=== PATIENT | female | born 1985 | race African-American/Black ===

== ENCOUNTER 2020-05-19 16:44 | Emergency (ER) | payer OTHER ==
[~2020-05-19] VITALS: Ht 154.9 cm; Wt 71.2 kg
[2020-05-19 17:00] VITALS: BP 138/92
--- NOTE | 2020-05-19 17:00 | NUR ---
ED Nurse Note: Pt walked into ED for pain L leg for 2 days, when she was bitten by spider. Spider bite has no drainage, pain 7/10. Slight swelling and redness at site. Pt is alert and orientedx4, ambulatory.
[2020-05-19] MEDS ORDERED: CEPHALEXIN500 MG ORAL (17:11)
[2020-05-19] MEDS ORDERED: IBUPROFEN600 M1 ORAL (17:11)
[2020-05-19] MEDS ORDERED: MUPIROCIN22 GM TOPIC (17:11)
--- NOTE | 2020-05-19 17:11 | Emergency Room Report ---
History of Present Illness General Chief Complaint: Skin Rash/Abscess Source: Patient Present Illness HPI 34-year-old female presents to the emergency department complaining of 9 out of 10 severity pain that is been progressive to the posterior left thigh x2 days. Patient reports she sustained insect bite 2 days ago and initially it was itchy with some mild swelling. Patient reports that after scratching she noticed it became more painful and tender to the touch. Patient reports some warmth. She denies fevers or chills. She also reports additional insect bite to the left collarbone area x1 day. Patient denies itching at this time. She reports she is up-to-date with tetanus vaccination. She denies significant past medical history. She denies or suspicion of . No other aggravating or relieving factors. Allergies: Coded Allergies: No Known Allergies (Unverified , 05/19/20) COVID-19 Screening Contact w/high risk pt: No Experienced COVID-19 symptoms?: No COVID-19 Testing performed OUTSIDE SALES MANAGER: No Patient History Past Medical History: see triage record Past Surgical History: none Pertinent Family History: none Now: No Reviewed Nursing Documentation: PMH: Agreed; PSxH: Agreed Nursing Documentation-PMH Past Medical History: No Stated History Review of Systems All Other Systems: negative except mentioned in HPI Physical Exam Vital Signs Date Time Temp Pulse Resp B/P (MAP) Pulse Ox O2 Delivery O2 Flow Rate FiO2 05/19/20 16:50 98.4 84 16 141/95 (110) 100 Room Air Sp02 EP Interpretation: reviewed, normal General Appearance: no apparent distress, alert, GCS 15, non-toxic Head: normocephalic, atraumatic Eyes: bilateral eye normal inspection, bilateral eye PERRL ENT: hearing grossly normal, normal voice Neck: full range of motion Respiratory: chest non-tender, lungs clear, normal breath sounds, no res piratory distress, no accessory muscle use, no wheezing, speaking full sentences Cardiovascular #1: regular rate, rhythm Musculoskeletal: normal range of motion, gait/station normal, non-tender Neurologic: alert, motor strength/tone normal, oriented x3, sensory intact, responsive, speech normal Psychiatric: judgement/insight normal Skin: no rash, other - insect bite of the left posterior thigh with secondary bacterial infection. No evidence to suggest abscess. No palpable fluctuance. Lymphatic: no adenopathy Medical Decision Making PA Attestation Dr. Ma Is my supervising Physician whom patient management has been discussed with. Diagnostic Impression: Primary Impression: Infected insect bite of lower extremity Qualified Codes: S80.862A - Insect bite (nonvenomous), left lower leg, initial encounter; L08.9 - Local infection of the skin and subcutaneous tissue, unspecified; W57.XXXA - Bitten or stung by nonvenomous insect and other nonvenomous arthropods, initial encounter ER Course 34-year-old female presents to the emergency department complaining of 9 out of 10 severity pain that is been progressive to the posterior left thigh x2 days. Patient reports she sustained insect bite 2 days ago and initially it was itchy with some mild swelling. Patient reports that after scratching she noticed it became more painful and tender to the touch. Patient reports some warmth. She denies fevers or chills. She also reports additional insect bite to the left collarbone area x1 day. Patient denies itching at this time. She reports she is up-to-date with tetanus vaccination. She denies significant past medical history. She denies or suspicion of . No other aggravating or relieving factors. Ddx considered but are not limited to cellulitis, scabies, insect bites, tic bites, spider bites, contact dermatitis, Drug reaction, allergic reaction, fungal infection, lice. Vital signs: are WNL, pt. is afebrile H&PE are most consistent with insect bite of the left posterior thigh with secondary bacterial infection. No evidence to suggest abscess. No palpable fluctuance. ORDERS: none required at this time, the diagnosis is clinical ED INTERVENTIONS: None required at this time. -I do not identify an emergent condition at this time. With current pre sentation, pt. is stable for close outpatient follow up and conservative treatment. D/w pt. to return promptly to ED with worsening or new symptoms.- Pt. verbalizes' understanding and agreement with proposed treatment plan. DISCHARGE: At this time pt. is stable for d/c to home. Will provide printed patient care instructions, and any necessary prescriptions. Care plan and follow up instructions have been discussed with the patient prior to discharge. Last Vital Signs Date Time Temp Pulse Resp B/P (MAP) Pulse Ox O2 Delivery O2 Flow Rate FiO2 05/19/20 16:50 98.4 84 16 141/95 (586) 100 Room Air Disposition: HOME, SELF-CARE Condition: Stable Referrals: [facility] [place] [facility] Patient Instructions: Insect Bite, [id number] Additional Instructions: Take medications as directed. Follow up with a Primary Care Provider in 3-5 days, even if your symptoms have resolved. --Please review list of primary care clinics, if you do not already have a primary care provider Return sooner to ED if new symptoms occur, or current symptoms become worse. - Please note that this Emergency Department Report was dictated using [employer] cutting operator technology software, occasionally this can lead to erroneous entry secondary to interpretation by the dictation equipment. Nannette Crenshaw May 19, 2020 17:11
--- NOTE | 2020-05-19 17:28 | NUR ---
ER DISCHARGE NOTE: Patient is cleared to be discharged per ERMD, pt is aox4, on room air, with stable vital signs. pt was given dc and prescription instructions, pt was able to verbalize understanding, pt id band removed. pt is able to ambulate with steady gait. pt took all belongings.
[2020-05-19 17:29] VITALS: BP 132/90
== END 2020-05-19 17:29 | disposition home or self-care (01) ==
LOC: EMR 17:13
DX: S80.862A Insect bite (nonvenomous), left lower leg, initial encounter (principal); L08.9 Local infection of the skin and subcutaneous tissue, unspecified; W57.XXXA Bitten or stung by nonvenomous insect and other nonvenomous arthropods, initial encounter
CPT/HCPCS: 99282